=== PATIENT | male | born 1990 | race Caucasian/White ===

== ENCOUNTER 2017-03-31 11:59 | Observation (INO) | payer OTHER ==
[2017-03-31] MEDS ORDERED: Metoclopramide IV* 5 MG/ML 2 ML VIAL IV ONE (14:17)
[2017-03-31] MEDS ORDERED: acetaZOLAMIDE TAB* 250 MG PO ONE (14:35)
--- NOTE | 2017-03-31 14:38 | RAD ---
Indication: Headaches, visual field disturbance. CT of the brain was performed without IV contrast. Ventricular structures are midline. No midline shift is noted. The extra-axial spaces are unremarkable. There is no evidence of intracranial mass or hemorrhage. No other high or low density lesions are identified. Mastoid air cells and paranasal sinuses are otherwise unremarkable IMPRESSION: There is no intracranial mass or hemorrhage.
[2017-03-31 15:07] LABS: Hematocrit 41 % (42-52); Hemoglobin 13.6 g/dl (14.0-18.0); Mean Corpuscular HGB Conc 34 g/dl (31-36); Mean Corpuscular Hemoglobin 30 pg (27-31); Mean Corpuscular Volume 89 fL (80-94); Mean Platelet Volume 9 um3 (7.4-10.4); Red Blood Count 4.54 10^6/ul (4.0-5.4); Red Cell Distribution Width 13 % (10.5-15); White Blood Count 6.5 10^3/ul (3.5-10.8)
[2017-03-31 15:09] LABS: Urine Bilirubin Negative (Negative); Urine Glucose Negative (Negative); Urine Nitrite Negative (Negative)
[2017-03-31 15:28] LABS: Albumin 4.3 g/dL (3.2-5.2); BUN/Creatinine Ratio 24.6 (8-20); Calcium 9.4 mg/dL (8.6-10.3); EGFR African American 178.2 (>60); EGFR Non-African American 138.6 (>60); Globulin 2.5 g/dL (2-4); Potassium 4.1 mmol/L (3.5-5.0); Total Bilirubin 0.5 mg/dL (0.2-1.0); Total Protein 6.8 g/dL (6.4-8.9)
[2017-03-31] MEDS ORDERED: Indomethacin CAP* 50 MG PO PRN (17:12)
[2017-03-31] MEDS ORDERED: Ondansetron INJ* 2 MG/ML VIAL IV PRN (17:12)
[2017-03-31] MEDS ORDERED: Acetaminophen TAB* 325 MG PO PRN (17:12)
[2017-03-31] MEDS ORDERED: Ketorolac INJ* 15 MG/ML 1 ML VIAL IV PUSH ONE (17:16)
[2017-03-31] MEDS ORDERED: Ketorolac INJ* 30 MG/ML 1 ML VIAL ONE (17:23)
[2017-03-31] MEDS ORDERED: Ketorolac INJ* 30 MG/ML 1 ML VIAL IV ONE (18:00)
[2017-03-31] MEDS ORDERED: Morphine INJ* 4 MG/ML 1 ML SYRINGE IV PRN (18:27)
[2017-03-31] MEDS ORDERED: Buffered Lidocaine 0.9% SYRIN* 5 ML/SYR SYRINGE INTRADERM ONE (21:33)
[2017-03-31] MEDS ORDERED: Famotidine IV* 10 MG/ML 2 ML (20 mg) IV ONE (21:33)
[2017-03-31] MEDS ORDERED: Midazolam* 1 MG/ML 5 ML VIAL (5 MG) ONE (21:45)
[2017-03-31] MEDS ORDERED: fentaNYL* 50 MCG/ML 2 ML VIAL (100 MCG VIAL) ONE (21:45)
[2017-03-31] MEDS ORDERED: Glycopyrrolate IV* 0.2 MG/ML 1 ML VIAL ONE (21:46)
[2017-03-31] MEDS ORDERED: Famotidine IV* 10 MG/ML 2 ML (20 mg) ONE (21:47)
--- NOTE | 2017-03-31 23:14 | ED ---
Corrine León Alok, scribed for Gerardo Singh MD on 03/31/17 at 1328 . Headache - HPI Summary HPI Summary: 26M from [facility] presents to the ED with a MARINO accompanied by left sided vision loss and neck pain for the past few weeks. Pt states that his HAs are aggravated by exertion. Pt states his vision loss usually accompanies his MARINO but worsened this morning to total vision loss. Pt denies fever, vomiting, recent fall or head trauma. Pt states he has had a similar episode of MARINO a few months ago which he was hospitalized for at [facility]. 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 Pt takes 250mg BID of diamize normally but this past week has only take 250mg QD. Pt also notes 40 days off his diamize recently. Pt denies h/o stroke. Pt has been recommended a shunt but has refused until he is no longer incarcerated. Pt states he has had 13 spinal taps in his lifetime. Pt denies h/o stroke. Pt smokes tobacco cigarettes. - History Of Current Complaint Chief Complaint: EDHeadache Stated Complaint: HEADACHES/LOSS OF VISION Hx Obtained From: Patient Onset/Duration: Started weeks ago, Still Present Initially Headache Was: Moderate Currently Pain Is: Current Pain Scale(0-10)= - 9, Moderate Aggravating Factor: Exertion Associated Signs And Symptoms: Neck Pain, Visual Changes - Allergies/Home Medications Allergies/Adverse Reactions: Allergies Allergy/AdvReac Type Severity Reaction Status Date / Time Fish Allergy Allergy Hives Verified 03/31/17 14:38 Shellfish Allergy Allergy Hives Verified 03/31/17 14:38 PMH/Surg Hx/FS Hx/Imm Hx Sensory History: Reports: Hx Contacts or Glasses Opthamlomology History: Reports: Hx Contacts or Glasses Neurological History: Reports: Other Neuro Impairments/Disorders - Popolidimia pseudotumor cerebri Infectious Disease History: No Infectious Disease History: Denies: Traveled Outside the [place] in Last 30 Days - Family History Known Family History: Negative: Hypertension - Social History Alcohol Use: None Substance Use Type: Reports: None Hx Tobacco Use: Yes Smoking Status (MU): Light Every Day Tobacco Smoker Type: Cigarettes Review of Systems Negative: Fever, Chills Positive: Blurred Vision. Negative: Erythema Negative: Sore Throat Negative: Chest Pain Negative: Shortness Of Breath, Cough Negative: Abdominal Pain, Vomiting, Nausea Negative: dysuria, hematuria Positive: Other - neck pain. Negative: Myalgia, Edema Negative: Rash Neurological: Other - Negative: Dizziness Positive: Headache All Other Systems Reviewed And Are Negative: Yes Physical Exam - Summary Physical Exam Summary: Constitutional: Well-developed, Well-nourished, Alert. (-) Distressed Skin: Warm, Dry HENT: Eyes: Conjunctiva normal Neck: Musculoskeletal ROM normal neck. (-) JVD, (-) Stridor, (-) Tracheal deviation Cardio: Rhythm regular, rate normal, Heart sounds normal; Intact distal pulses; The pedal pulses are 2+ and symmetric. Radial pulses are 2+ and symmetric. (-) Murmur Pulmonary/Chest wall: Effort normal. (-) Respiratory distress, (-) Wheezes, (-) Rales Abd: Soft. (-) Tenderness, (-) Distension, (-) Guarding, (-) Rebound Musculoskeletal: (-) Edema Lymph: (-) Cervical adenopathy Neuro: Alert, Oriented x3, Strength normal, Cranial nerves II-XII are grossly intact. (-) Dysmetria, (-) Nystagmus, (-) Ataxia by finger to nose testing, (-) Sensory deficit. Left temporal unilateral vision field loss, can perceive only light. Psych: Mood and affect Normal Triage Information Reviewed: Yes Vital Signs On Initial Exam: Initial Vitals Temp Pulse Resp BP Pulse Ox 97.7 F 61 20 125/69 99 03/31/17 12:02 03/31/17 12:02 03/31/17 12:02 03/31/17 12:02 03/31/17 12:02 Vital Signs Reviewed: Yes - Mignon Coma Scale Coma Scale Total: 15 Diagnostics - Vital Signs Vital Signs Temp Pulse Resp BP Pulse Ox 03/31/17 12:04 97.8 F 63 20 125/69 100 03/31/17 12:02 97.7 F 61 20 125/69 99 - Laboratory Result Diagrams: 03/31/17 14:53 03/31/17 14:53 Lab Statement: Any lab studies that have been ordered have been reviewed, and results considered in the medical decision making process. - CT Brain CT CT Interpretation: Positive (See Comments) - IMPRESSION: There is no intracranial mass or hemorrhage. CT Interpretation Completed By: Radiologist - EKG 1408 Cardiac Rate: NL - 66 bpm EKG Rhythm: Sinus Rhythm EKG Interpretation: Early Repolarization. No STEMI. Headache Course/Dx - Course Assessment/Plan: Discussed patient care with Dr. Henderson (Neurology) @ 1433 - recommends reduce by 10 ml. States Anesthesia could do procedue. Discussed patient care with Dr. Vallejo (anesthesiologist) @ 1540 - made aware of pt therapeutic tap. States Dr. Henderson may be contacted for parameters - Diagnoses Provider Diagnoses: visual deficit , Popolidimia pseudotumor cerebri - Physician Notifications Discussed Care Of Patient With: Emily Williamson - Will admit pt to [facility] [place] Time Discussed With Above Provider: 15:27 Discharge - Discharge Plan Condition: Stable Disposition: ADMITTED TO [facility] Referrals: Non Staff,Doctor [Primary Care Provider] - The documentation as recorded by the Corrine calderon Alok accurately reflects the service I personally performed and the decisions made by , Gerardo Singh MD.
--- NOTE | 2017-03-31 23:26 | HP ---
CC: [facility]; Dr. Henderson * HISTORY AND PHYSICAL: DATE OF ADMISSION: 03/31/17 PRIMARY CARE PROVIDER: [facility]. ATTENDING PHYSICIAN WHILE IN THE HOSPITAL: Dr. Emily Lopez * (report dictated by Sourav Stevenson NP). CHIEF COMPLAINT: 1. Headache. 2. Visual loss. HISTORY OF PRESENTING ILLNESS: Mr. Turcios is a 26-year-old male patient who carries a history of pseudotumor cerebri. He comes in today stating that he recently was transferred from another facility and while he was at that facility in [facility], he apparently was off his Diamox for approximately 40 days. He recently restarted the Diamox at [place]; however, despite this, he had been having constant headaches, worse whenever he does exertion. He also notes that he has also been having some more visual changes and much more severe headache this morning. When he woke up, he was having floating visual changes. He said he had floaters, he had noted that his left peripheral vision was much worse than at his baseline and he was concerned that the the pressure may be building in his head as he has had issues like this in the past. He was concerned. He went to [facility] and they sent him to the hospital to be evaluated. He says he took his Diamox yesterday. He did get a dose in the ER. He denies having any chest pain or any shortness of breath. Denies having any slurred speech or weakness to one side. He says the pain is mostly in the front of his head and it just feels like it is a significant pressure. He denies having any fevers associated with this and he denies having any neck pain or stiffness. He came in to the ER today. He was evaluated. There was concern for the, again, possible worsening pseudotumor cerebri. So, the hospitalist service was asked to evaluate for admission. PAST MEDICAL HISTORY: Significant for pseudotumor cerebri. PAST SURGICAL HISTORY: 1. He has had knee surgery. 2. Hand surgery. HOME MEDICATIONS: According to him include Diamox 750 mg p.o. b.i.d. ALLERGIES TO MEDICATIONS: Include SHELLFISH. FAMILY HISTORY: Reviewed and noncontributory. SOCIAL HISTORY: He does smoke 4 cigarettes a day. He denies any recreational drugs or alcohol abuse. He resides at [facility]. REVIEW OF SYSTEMS: There is no documented fever. He denied having any significant weight change. There was no double vision. He denies having any ear discharge. There is no rhinorrhea. There was no sore throat. No thyroid enlargement. Denies having any chest pain. There was no orthopnea. No nocturnal dyspnea. There is no abdominal pain. No nausea. No vomiting. No dysuria. No frequency. No seizure. There was no loss of consciousness. No pruritus and no skin ulcerations. Review of 14 systems completed, all others negative. PHYSICAL EXAMINATION GENERAL: At this time, Mr. Turcios is a 26-year-old male patient. He is sitting in the hospital bed. He does not appear to be in any acute distress. VITAL SIGNS: Blood pressure 124/68, pulse 61, respirations 18, O2 sat 99%, and temperature 97.5. HEENT: Head is atraumatic and normocephalic. Eyes: EOMs are intact. His sclerae were anicteric and not pale. Throat: Oral mucosa appears to be moist. No oropharyngeal erythema. NECK: Supple. LUNGS: Clear to auscultation bilaterally. No wheezes, rales, or rhonchi. HEART: Sounds S1, S2. He had a regular rate and rhythm. He had no murmurs, rubs, or gallops. ABDOMEN: Soft, it was flat, it was nontender. Bowel sounds were present. EXTREMITIES: Pulses were 2+ throughout. He is able to move all 4 extremities with 5/5 strength. NEUROLOGIC: The patient is awake, he is alert. Speech is clear. His tongue is midline. His forensic psychologist were equal. He had [id number] and [id number] intact bilaterally. Visual lizarraga: He does have again peripheral vision loss bilaterally and it is worse on the left than on the right certainly, but no central vision loss was noted. SKIN: Grossly intact. LABORATORY DATA AND DIAGNOSTIC STUDIES: Revealed a WBC of 6.5, RBC of 4.54, hemoglobin 13.6, hematocrit of 41, platelet count of 193. His sodium was 137, potassium 4.1, chloride of 105, bicarb 28, BUN 17, creatinine of 0.69, glucose 91, lactic 0.9, calcium 9.4. Total bilirubin 0.5, AST 15, ALT 12, alk phos 57. His urine was obtained. It was negative. He had a brain CT obtained today which revealed there is no acute intracranial mass or hemorrhage. He did have an EKG obtained today. His EKG showed a normal sinus rhythm rate of 66. No ST elevations or T-wave inversions were noted. Old medical records were reviewed. ASSESSMENT AND PLAN: Mr. Turcios is a 26-year-old male patient coming in to the ER today with complaints of headache, visual changes. Because of the concern of increasing cranial pressure and pseudotumor cerebri, the hospitalist service was asked to evaluate for admission. He will be admitted under observation status for: 1. Headache: I suspect this is probably related to his intracranial pressures. Plan is to go ahead and get a spinal tap as soon as possible. Anesthesia has evaluated the patient. The patient, however, wants to have the tap done under anesthesia only. They will be doing this in the OR later tonight. I did explain to the patient that the sooner this is done, the better because there is a high risk of permanent visual loss. He is aware of the risk and he says he wants it done under sedation. Anesthesia will be performing this later. Dr. Henderson is on the case. We will get neuro checks as well. I did continue him on his Diamox in addition to this for pain control for his headache. I will go ahead and put him on indomethacin and Toradol one time dose now. 2. Pseudotumor cerebri: Again, Dr. Henderson is following. 3. DVT prophylaxis: He will be on SCDs. 4. Fluids, electrolytes, and nutrition: He is n.p.o. pending the spinal tap. 5. Code status: He is full code. TIME SPENT: Time spent on the admission was 60 minutes; greater than half the time was spent [id number] with the patient obtaining my history and physical, other half the time spent going over the plan of care with the patient and implementing plan of care. I did discuss the plan of care with my attending, Dr. Lopez; she is in agreement. SOURAV STEVENSON, JORDY [id number]/[facility] #: [id number] [facility]
[2017-04-01] MEDS: acetaZOLAMIDE TAB* 250 MG PO SCH ×2 (00:28→09:10)
[2017-04-01 06:32] LABS: Hematocrit 38 % (42-52); Hemoglobin 12.6 g/dl (14.0-18.0); Mean Corpuscular HGB Conc 33 g/dl (31-36); Mean Corpuscular Hemoglobin 30 pg (27-31); Mean Corpuscular Volume 90 fL (80-94); Mean Platelet Volume 9 um3 (7.4-10.4); Red Blood Count 4.25 10^6/ul (4.0-5.4); Red Cell Distribution Width 13 % (10.5-15); White Blood Count 5.2 10^3/ul (3.5-10.8)
[2017-04-01 06:46] LABS: BUN/Creatinine Ratio 17.7 (8-20); Calcium 8.7 mg/dL (8.6-10.3); EGFR African American 121.8 (>60); EGFR Non-African American 94.7 (>60); Potassium 3.7 mmol/L (3.5-5.0)
--- NOTE | 2017-04-01 08:30 | PN ---
Subjective Date of Service: 04/01/17 Interval History: Patient seen this morning. Reports symptoms have improved significantly after the LP. Reports this AM headache is gone. Reports floaters have resolved, still slightly blurry vision but close to baseline. Transferred to ICU for telemetry needs due to bradycardia noted after the procedure. Family History: Unchanged from Admission Social History: Unchanged from Admission Past Medical History: Unchanged from Admission Objective Active Medications: Acetaminophen (Tylenol Tab*) 650 mg PO Q4H PRN Acetazolamide (Diamox Tab*) 750 mg PO BID RHONDA Lactated Ringer's (Lactated Ringers 1000 Ml Bag*) 1,000 mls @ 125 mls/hr IV PER RATE RHONDA Indomethacin (Indocin Cap*) 50 mg PO TID PRN Morphine Sulfate (Morphine Inj (Syringe)*) 4 mg IV Q4H PRN Ondansetron HCl (Zofran Inj*) 4 mg IV Q6H PRN Vital Signs 03/31/17 03/31/17 03/31/17 16:00 16:28 16:39 Temperature 97.5 F Pulse Rate 70 58 61 Respiratory 18 Rate Blood Pressure 119/51 124/68 (mmHg) O2 Sat by Pulse 96 97 99 Oximetry 03/31/17 03/31/17 03/31/17 16:47 18:40 22:50 Temperature 97.5 F 97.2 F Pulse Rate 61 43 Respiratory 18 18 14 Rate Blood Pressure 124/68 (mmHg) O2 Sat by Pulse 99 100 Oximetry 03/31/17 03/31/17 03/31/17 23:00 23:15 23:30 Temperature Pulse Rate 48 47 40 Respiratory 16 16 16 Rate Blood Pressure 97/48 89/58 95/46 (mmHg) O2 Sat by Pulse 97 96 95 Oximetry 03/31/17 03/31/17 04/01/17 23:50 23:55 00:00 Temperature Pulse Rate 49 48 Respiratory 12 18 9 Rate Blood Pressure (mmHg) O2 Sat by Pulse 96 91 Oximetry 04/01/17 04/01/17 04/01/17 00:01 00:12 01:00 Temperature 98.1 F Pulse Rate 55 69 55 Respiratory 18 15 16 Rate Blood Pressure 116/67 116/67 112/65 (mmHg) O2 Sat by Pulse 99 82 97 Oximetry 04/01/17 04/01/17 04/01/17 02:00 03:00 04:00 Temperature 97.2 F Pulse Rate 50 52 49 Respiratory 16 16 16 Rate Blood Pressure 99/57 96/59 110/54 (mmHg) O2 Sat by Pulse 96 97 95 Oximetry 04/01/17 04/01/17 04/01/17 05:00 06:00 07:00 Temperature Pulse Rate 45 46 45 Respiratory 16 Rate Blood Pressure 102/59 100/54 99/51 (mmHg) O2 Sat by Pulse 96 96 97 Oximetry 04/01/17 04/01/17 07:38 08:00 Temperature 98.4 F Pulse Rate 54 Respiratory Rate Blood Pressure 112/61 (mmHg) O2 Sat by Pulse 95 Oximetry Oxygen Devices in Use Now: None Appearance: Young, M, laying in bed in NAD Eyes: No Scleral Icterus Ears/Nose/Mouth/Throat: Mucous Membranes Moist Neck: NL Appearance and Movements; NL JVP Respiratory: Symmetrical Chest Expansion and Respiratory Effort, Clear to Auscultation Cardiovascular: NL Sounds; No Murmurs; No JVD, RRR Abdominal: NL Sounds; No Tenderness; No Distention Lymphatic: No Cervical Adenopathy Extremities: No Edema Skin: No Rash or Ulcers Neurological: Alert and Oriented x 3, NL Muscle Strength and Tone Result Diagrams: 04/01/17 05:30 04/01/17 05:30 Assess/Plan/Problems-Billing Assessment: Headache and visions changes 2/2 pseudotumor cerebri in a 26 yo M - Patient Problems (1) Headache Current Visit: Yes Comment: and vision changes. Symptoms have largely resolved after LP. Neuro to see. (2) Pseudotumor cerebri Current Visit: Yes Comment: S/P LP yesterday by anethesia. Continue home diamox. (3) Bradycardia Current Visit: Yes Comment: HR at low end of normal/bradycardic even prior to procedure. Slower with HRs in high 30s and 40s while asleep, seems to normalize to 60s while awake and active. Asymptomatic. No further w/u needed. (4) DVT prophylaxis Current Visit: Yes Comment: SCDs Status and Disposition: Likely discharge later today
[2017-04-01 13:48] VITALS: BP 120/64
--- NOTE | 2017-04-01 16:58 | CONS ---
NEUROLOGY CONSULTATION: DATE OF CONSULT: 04/01/17 REQUESTING PROVIDER: Sourav Stevenson NP REASON FOR CONSULT: Idiopathic intracranial hypertension. HISTORY OF PRESENT ILLNESS: Johny Turcios is a 26-year-old male prisoner who presented to our emergency department with increase in headache and visual loss in the left eye. He carries a diagnosis of pseudotumor cerebri, which he received at approximately age 17. He is cared for by a neurologist named, Dr. Jones at [facility], and has been on Diamox 750 mg twice daily. Apparently in his transfer between facilities, he has been off of that medication for several weeks. He was recently restarted on the medication at [place], but despite this he has been having constant headaches, which are especially significant whenever he does physical exertion, which is part of the daily routine at [place]. Specifically he notes that when he has to climb stairs, do pushups, or run, he gets a pounding, constant headache, which lasts for several minutes to a couple of hours and he indicates he has been taking a lot of ibuprofen to try to deal with this. More recently he has been having some increased visual changes in his left eye and at baseline reports that he has diminished vision in the temporal field of the left eye as a result of his condition. I was contacted by the emergency department yesterday and recommended both a diagnostic and therapeutic lumbar puncture for which the patient was put into observation status and Anesthesia was contacted. I reviewed his CAT scan yesterday, which showed no contraindications to performing the procedure. I spoke with Dr. Vallejo who then performed the lumbar puncture under sedation as the patient indicated that he was not able to tolerate it otherwise. According to Dr. Vallejo's note, the opening pressure was measured at 29 cm of water and he drained of approximately 19 cc of fluid and obtained a closing pressure of 18. The patient reports that his headache is essentially gone after this, but he was noted to have some bradycardia overnight when sleeping and even into this morning when sleeping. His heart rate has dipped into the 30s and 40s. He indicates that he feels very tired today, but otherwise he is at his baseline. He requests a note excusing him from physical exertion at [place]. PAST MEDICAL HISTORY: Pseudotumor cerebri. PAST SURGICAL HISTORY: Knee surgery and hand surgery. HOME MEDICATIONS: 1. Acetazolamide 750 mg twice daily. 2. Tylenol as needed. His acetazolamide was continued in the hospital. ALLERGIES: He reports an allergy to FISH and SHELLFISH, which causes hives. FAMILY HISTORY: Noncontributory. SOCIAL HISTORY: He is a light smoker. Denies alcohol or drug use. He currently resides at [facility], but indicates he is getting out in April and plans on following up with his neurologist in May. REVIEW OF SYSTEMS: As per HPI, otherwise negative. PHYSICAL EXAMINATION: Vital Signs: Temperature 98.4, blood pressure 112/61, heart rate 62, oxygen saturation 95% on room air. On general examination, he is in no acute distress. He was initially sleeping, but woke easily to voices. Heart is in regular rate and rhythm, slightly bradycardic, but in the high 50s with no murmurs, rubs, or gallops. Lungs are clear to auscultation bilaterally. On neurologic examination, he is fully awake , alert, and oriented. Speech is fluent without dysarthria or aphasia. On cranial nerve testing, pupils are equal, round, and reactive from 3 to 2 mm bilaterally. The fundi were incompletely visualized, but I saw no definite papilledema. Versions are full without nystagmus. On visual field testing, he has a monocular temporal field defect in the left eye. His face is symmetric in both strength and sensation. Hearing is intact to finger rub. The palate elevates symmetrically and the tongue is midline. On motor testing, there is normal bulk and tone in the upper and lower extremities. Strength is full both proximally and distally. There is no pronator drift. Sensation is intact to light touch. [id number]-[id number] and heel- to-reddy are without ataxia. Romberg is negative. He is able to rise onto his heels and toes. DIAGNOSTIC STUDIES/LAB DATA: Brain CT was reviewed as above and was unremarkable for any acute intracranial process. CBC was notable for hematocrit of 41. CMP was overall unremarkable as was his urinalysis. IMPRESSION: Mr. Turcios is a 26-year-old man with idiopathic intracranial hypertension who had an interruption in his Diamox therapy and presented to the hospital with increasing headaches and increasing vision problems in the left eye. He had elevated pressure on his lumbar puncture yesterday, which is supportive of the diagnosis. His headache responded to CSF drainage. I did not see any definite papilledema on my exam today. He indicates that when he is on Diamox, his symptoms are typically well controlled. He should continue on Diamox 750 mg twice daily. I think it will be reasonable for him to be excused from physical activity as this could increase his intracranial pressure and lead to headaches. I discussed this with Dr. Rendon and recommended a note be given to Johny excusing him from this. He should follow up as scheduled with his neurologist at [facility]. Neurologically, he is stable for discharge. [id number]/[facility] [place] #: [id number] [facility]
--- NOTE | 2017-04-02 10:54 | DS ---
DISCHARGE SUMMARY: DATE OF ADMISSION: 03/31/17 DATE OF DISCHARGE: 04/01/17 The patient is a prisoner of [facility]. PRINCIPAL DISCHARGE DIAGNOSES: Pseudotumor cerebri, headache, visual changes, bradycardia. DISCHARGE MEDICATION REGIMEN: Diamox 750 mg by mouth 2 times daily. STUDIES DONE DURING HOSPITALIZATION: CT of the brain without contrast, impression: There is no intr acranial mass or hemorrhage. CONSULTANTS DURING THIS HOSPITALIZATION: Dr. Cristina Henderson, Neurology. HISTORY OF PRESENT ILLNESS AND HOSPITAL SUMMARY: Please see the full history and physical by Sourav craven NP for full details. Briefly, Mr. Turcios is a 26-year- old male with a past medical histo ry of pseudotumor cerebri, who had recently been off of his Diamox for over 1 month. He restarted i t recently at his new facility at [place]; however, he has been having frequent headaches and some v isual changes. He was sent to the hospital. CT scan was unremarkable. Neurology was consulted and recommended an LP, which was done by Anesthesia in the OR. The following morning, the patient's sym ptoms had nearly resolved, headache had completely resolved and the patient was nearly back to feroz l. The patient was noted to have some bradycardia, which he seems to have throughout the hospitaliz ation. When he was sleeping, his heart rate would dip into the 40s and occasionally to the upper 30 s; however, when he would wake and with any activity, it would come up to normal heart rate. The pa tiegregory will be discharged on oral Diamox and will be sent back to [place] with some activity restrict ions. He may follow up with the physician there in order to determine when he will be cleared to re turn to physical therapy. TIME SPENT: Total time spent on this discharge, 40 minutes. This is just a summary of hospitalization. Please see the full medical record for further details. [id number]/[facility] #: [id number]
== END 2017-04-01 15:45 | disposition home or self-care (01) ==
LOC: ED 11:59 → EEVIPCON 15:33 → MED 15:33 → ICU 23:46
PROVIDERS: ADMIT Internal Medicine; ATTEND Hospitalist
PROC: 009U3ZX Drainage of Spinal Canal, Percutaneous Approach, Diagnostic (ICD-10-PCS; principal; 2017-03-31 22:54)
DX: R51 Headache (principal); G93.2 Benign intracranial hypertension; R00.1 Bradycardia, unspecified; M54.2 Cervicalgia; H53.8 Other visual disturbances; F17.210 Nicotine dependence, cigarettes, uncomplicated; H54.7 Unspecified visual loss
CPT/HCPCS: 36415; 62270; 70450; 80048; 80053; 81003; 83605; 85025; 93005; 96374; 96375; 99283; A9270-GY; G0378; J1885; J2250; J2270; J3010